=== PATIENT | male | born 1995 | race Caucasian/White ===

== ENCOUNTER 2019-09-05 11:52 | Emergency (ER) | payer OTHER, MEDICAID, SELFPAY ==
[2019-09-05 12:07] VITALS: BP 153/81; PULSE 82; RESP 16; TEMP 36.4; O2SAT 98
--- NOTE | 2019-09-05 12:17 | ED.NAVMDI ---
HPI - Nausea/Vomiting/Diarrhea General Chief complaint: Nausea/Vomiting/Diarrhea Stated complaint: diarrhea/vomiting/nausea Time Seen by Provider: 09/05/19 12:17 Source: patient and RN notes reviewed Mode of arrival: ambulatory Limitations: no limitations History of Present Illness HPI Narrative: 24-year-old male who presents to [facility] care with complaints of abdominal pain associated with nausea and vomiting and diarrhea since Tuesday. Patient states that he gets the abdominal pain which is sharp and crampy and he gets diarrhea and vomiting and then he doesn't seem to have any further episodes that day. Today is only day that he only had emesis. Patient denies any fevers, chill cough or sore throat. He states that he has taken Pepto Bismol and Tums for his symptoms. He also states that his girlfriend had food poisoning which only last for 1 day and they did eat at same place. Patient states that he would like COVID testing due to possible exposure at work. MD elicited complaint: vomiting and diarrhea Onset (ago): day(s) (3) Description of vomiting: food contents Description of diarrhea: watery Associated nausea: Yes Associated abdominal pain: Yes Location of pain: epigastric Related Data Home Medications Medication Instructions Recorded Confirmed albuterol sulfate [Ventolin HFA] 1 inh INHALATION QID PRN 09/05/19 09/05/19 budesonide-formoterol [Symbicort] 2 puff INHALATION Q12H 09/05/19 09/05/19 sertraline 100 mg PO DAILY 09/05/19 09/05/19 Allergies Allergy/AdvReac Type Severity Reaction Status Date / Time No Known Allergies Allergy Unknown Verified 09/05/19 12:13 Review of Systems Review of Systems: Narrative: CONSTITUTIONAL: Denies fever, chills, or sweats. EYES: Denies visual changes, redness, or discharge. ENT: Denies rhinorrhea, congestion, sore throat, or otalgia. CARDIOVASCULAR: Denies chest pain, palpitations, or edema. RESPIRATORY: Denies cough or dyspnea. GASTROINTESTINAL: states upper epigastric pain prior to emesis or diarrhea, some nausea, vomiting, or diarrhea. GENITOURINARY: Denies dysuria or hematuria. SKIN: Denies rash or itching. MUSCULOSKELETAL: Denies back pain, joint pain, or myalgia. NEUROLOGIC: Denies headache, numbness, or weakness. PSYCHIATRIC: Denies anxiety or depression. All systems reviewed & are unremarkable except as noted in HPI and below PMFSH Past Medical History Medical History (Updated 09/05/19 @ 13:03 by Erin Whitehead NP) Anxiety and depression Asthma Social History Social History (Updated 09/05/19 @ 13:02 by Erin Whitehead NP) Smoking status: Never smoker Living arrangements: with family Gender identity (if verbalized by the patient): Male Comments At time of signature, agree with nursing past medical, surgical, social history. There is no relevant family history pertinent to the presenting complaint Exam Narrative: Exam Narrative: GENERAL: Well-appearing, well-nourished,obese and in no acute distress. HEAD: Normocephalic, atraumatic. EYES: PERRLA and EOMI. ENT: Nares clear, no rhinorrhea or epistaxis. Mucous membranes moist. NECK: Supple.no lymphadenopthy CHEST: Clear to auscultation. No respiratory distress.SAO2 98% on room auir HEART: Regular rate and rhythm. No murmur heard. Normal peripheral pulses. ABDOMEN: Soft, nontender on palpation, upper epigastric pain prior to emesis or diarrhea, nondistended, normal active bowel sounds. EXTREMITIES: Normal range of motion. No edema. SKIN: Warm, dry, no rash. NEURO: No focal deficits. Alert and oriented x3. Course Vital Signs Vital signs: Vital Signs Temperature 36.4 C 09/05/19 12:07 Pulse Rate 82 09/05/19 12:07 Respiratory Rate 16 09/05/19 12:07 Blood Pressure 153/81 H 09/05/19 12:07 Pulse Oximetry 98 09/05/19 12:07 Temperature 36.4 C 09/05/19 12:07 Pulse Rate 82 09/05/19 12:07 Respiratory Rate 16 09/05/19 12:07 Blood Pressure 153/81 H 09/05/19 12:07 Pulse Oximetry 98
== END 2019-09-05 12:48 | disposition home or self-care (01) ==
PROVIDERS: Emergency Provider Registered Nurse
DX: K52.9 Noninfective gastroenteritis and colitis, unspecified (principal); R10.13 Epigastric pain; Z20.828 Contact with and (suspected) exposure to other viral communicable diseases; F41.9 Anxiety disorder, unspecified; F32.9 Major depressive disorder, single episode, unspecified; J45.909 Unspecified asthma, uncomplicated
CPT/HCPCS: 99203; G0463

== ENCOUNTER 2019-09-06 06:54 | Outpatient (NON) | payer OTHER, MEDICAID, SELFPAY ==
[2019-09-06 20:09] LABS: SARS-CoV-2 RNA PCR Negative
== END 2019-09-06 06:55 ==
PROVIDERS: Visit Provider Registered Nurse
DX: Z20.828 Contact with and (suspected) exposure to other viral communicable diseases (principal); K52.9 Noninfective gastroenteritis and colitis, unspecified
CPT/HCPCS: 87635; C9803; U0003

== ENCOUNTER 2019-09-27 14:22 | Emergency (ER) | payer OTHER, MEDICAID, SELFPAY ==
--- NOTE | 2019-09-27 14:31 | ED.ABDPAIN ---
HPI - Abdominal Pain General Chief Complaint: Abdominal Pain Stated Complaint: stomach pain/acid reflux/needs work note Time Seen by Provider: 09/27/19 14:33 Source: patient and RN notes reviewed Mode of arrival: ambulatory Limitations: no limitations History of Present Illness HPI narrative: 24 year old male who presents to [facility] care with continued complaints of intermittent episodes of abdominal pain around umbilicus area going into esophagus like heartburn which will proceed into nausea and vomiting and at times he will also have a stool. Patient was seen here on September 04 with similar symptoms and was given Dicyclomine which patient states did help some. He has appointment on 09/27/2019 with his medical doctor for further evaluation. Patient states that he has been taking TUMS and Pepto Bismol for his symptoms lately. He denies any blood noted in emesis or any bilious vomiting, no fevers, chills or sweats noted, denies any chest pain or any shortness of breath, denies illicit drug use, tobacco use or daily alcohol abuse. MD elicited complaint: abdominal pain (umbilicus) Pertinent past history: other (previous similar episode on September 02) Onset (ago): week(s) (continues intermittently since August) Pain Consistency: intermittent Location: epigastric (acid reflux) and periumbilical Severity: moderate Quality: cramping and burning Radiation: epigastric Migration to: epigastric Exacerbating factors: nothing Relieving factors: bowel movement, vomiting and other (Tums help some) Context: confirms history of similar episodes Associated symptoms: nausea, vomiting, diarrhea and other (formed stool) Treatments prior to arrival: antacids and other (dicyclomine) Related Data Home Medications Medication Instructions Recorded Confirmed albuterol sulfate [Ventolin HFA] 1 inh INHALATION QID PRN 09/05/19 09/27/19 sertraline 100 mg PO DAILY 09/05/19 09/27/19 albuterol sulfate [ProAir HFA] 1 inh INHALATION DAILY 09/27/19 09/27/19 Allergies Allergy/AdvReac Type Severity Reaction Status Date / Time No Known Allergies Allergy Unknown Verified 09/27/19 14:35 Review of Systems Review of Systems: Narrative: CONSTITUTIONAL: Denies fever, chills, or sweats. EYES: Denies visual changes, redness, or discharge. ENT: Denies rhinorrhea, congestion, sore throat, or otalgia. CARDIOVASCULAR: Denies chest pain, palpitations, or edema. RESPIRATORY: Denies cough or dyspnea. GASTROINTESTINAL: positive for mid abdominal pain, nausea, vomiting, occasional diarrhea. GENITOURINARY: Denies dysuria or hematuria. SKIN: Denies rash or itching. MUSCULOSKELETAL: Denies back pain, joint pain, or myalgia. NEUROLOGIC: Denies headache, numbness, or weakness. PSYCHIATRIC: positive history of anxiety or depression. All systems reviewed & are unremarkable except as noted in HPI and below PMFSH Past Medical History Medical History Anxiety and depression Asthma Social History Social History Smoking status: Never smoker Gender identity (if verbalized by the patient): Male Comments At time of signature, agree with nursing past medical, surgical, social history. There is no relevant family history pertinent to the presenting complaint Exam Narrative: Exam Narrative: GENERAL: Well-appearing, well-nourished,obese,and in no acute distress. HEAD: Normocephalic, atraumatic. EYES: PERRLA and EOMI. ENT: Nares clear, no rhinorrhea or epistaxis. Mucous membranes moist. NECK: Supple.no lymphadenopathy CHEST: Clear to auscultation. No respiratory distress.SAO2 99% on room air HEART: Regular rate and rhythm. No murmur heard. Normal peripheral pulses. ABDOMEN: Soft, nontender on palpation, nondistended, normal active bowel sounds. EXTREMITIES: Normal range of motion. No edema. SKIN: Warm, dry, no rash. NEURO: No focal deficits. Alert and oriented x3. Course Vital Sig
[2019-09-27 14:32] VITALS: BP 143/97; PULSE 86; RESP 20; TEMP 36.6; O2SAT 99
== END 2019-09-27 15:10 | disposition home or self-care (01) ==
PROVIDERS: Emergency Provider Registered Nurse
DX: R10.33 Periumbilical pain (principal); R11.2 Nausea with vomiting, unspecified; F41.9 Anxiety disorder, unspecified; F32.9 Major depressive disorder, single episode, unspecified; J45.909 Unspecified asthma, uncomplicated
CPT/HCPCS: 99213; G0463

== ENCOUNTER 2024-06-13 13:44 | Emergency (ER) | payer OTHER, SELFPAY ==
[2024-06-13 13:57] VITALS: BP 148/94; PULSE 112; RESP 20; TEMP 36.3; O2SAT 99
--- OUTSIDE RECORDS SUMMARY | 2024-06-13 14:34 | XMS_ITS | Clinical Summary ---
Author Organization [facility] Address [address] [place] [address] Care Team Providers Care Development Team Lead Name Role Phone Radha Blanco MD Primary Care Provider [phone] Allergies Active Allergy Reactions Criticality Noted Date Comments Seasonal Eyes Water & Itch,Runny Nose 024 Medications buPROPion (WELLBUTRIN) 75 MG tabletIndicatio ns:Mild episode of recurrent major depressive disorder Take 1 tablet (75 mg total) by mouth 2 (two) times daily. 180 tablet 11/01/2023 Active sertraline (ZOLOFT) 100 MG tabletIndicatio ns:Mild episode of recurrent major depressive disorder,ANDRES (generalized anxiety disorder) Take 2 tablets (200 mg total) by mouth daily. 180 tablet 11/01/2023 Active atorvastatin (LIPITOR) 10 MG tabletIndicatio ns:Hyperlipidem ia associated with type 2 diabetes mellitus (CMS/HCC HHS/HCC) Take 1 tablet (10 mg total) by mouth nightly at bedtime. 90 tablet 1 11/01/2023 Active metFORMIN ER (GLUCOPHAGE-XR) 500 MG 24 hr tabletIndicatio ns:Prediabetes Take 2 tablets (1,000 mg total) by mouth daily with breakfast. 180 tablet 11/01/2023 Active lisinopril-hydr oCHLOROthiazide (ZESTORETIC) 20-12.5 MG tabletIndicatio ns:Hypertension associated with type 2 diabetes mellitus (CMS/HCC HHS/HCC) Take 1 tablet by mouth daily. 90 tablet 1 11/01/2023 Active tirzepatide (MOUNJARO) 2.5 MG/0.5ML injectionIndica tions:Diabetes Mellitus Inject 2.5 mg into the skin every 7 days. Indications: Diabetes 2 mL 1 11/02/2023 Active vitamin D2, ergocalciferol, (DRISDOL) 1.25 mg capsuleIndicati ons:Vitamin D deficiency Take 1 capsule (50,000 Units total) by mouth every 7 days. 12 capsule 3 11/02/2023 Active Active Problems Problem Noted Date Diagnosed Date Elevated liver enzymes 11/02/2023 Vitamin D deficiency 11/02/2023 Hypertension Asthma ([facility]) Anxiety Depression Diabetes mellitus ([facility]) Immunizations Immunization Administration Dates Next Due Dtap (Acel-Immune) 09/20/2000, 7,1995,1995,1995 Hepatitis B Pediatric 1995,1995,01/14 Hib (PedvaxHIB)3 Dose 05/17/1996,1995,05/16,1995 Influenza (Generic) 11/25/2011 Influenza Adult (Generic) 03/01/2023,12/12/2017 MMR (MMRII) 09/20/2000,02/16/1996 Polio IPV (Ipol) 09/20/2000,1995, 6,1995 Tdap (Generic) 09/04/2009 Varicella (Varivax) 09/23/2006,05/17/1996 Family History Medical History Relation Comments Diabetes Brother Diabetes Father Depression Mother Hypertension Neg Hx Relation Status Comments Brother Father Mother Social History Tobacco Use Types Packs/Day Years Used Date Smoking Tobacco: Never Smokeless Tobacco: Never Tobacco Cessation:Counseling Given: Yes Comments:Vape everyday; counseled by Dr. Blanco Alcohol Use Standard Drinks/Week Comments Not Currently 0 (1 standard drink = 0.6 oz pur e alcohol) AUDIT-C Answer Date Recorded Q1: How often do you have a drink containing alc ohol? Monthly or less 11/01/2023 Q2: How many drinks containi ng alcohol do you have on a typical day when you are drinking? 3 or 4 11/01/2023 Q3: How often do you have si x or more drinks on one occasion? Never 11/01/2023 PHQ-2 Answer Date Recorded Patient Health Questionnaire-2 Score 4 11/01/2023 Sex and Gender Information Value Date Recorded Sex Assigned at Not on file Legal Sex Male 3:32 PM CDT Gender Identity Not on file Sexual Orientation Not on file Last Filed Vital Signs Vital Sign Reading Time Taken Comments Blood Pressure 129/89 11/01/2023 2:32 PM CDT Pulse 87 11/01/2023 1:49 PM CDT Temperature 36.7 C (98 F) 11/01/2023 1:49 PM CDT Respiratory Rate 18 11/01/2023 1:49 PM CDT Oxygen Saturation 95% 11/01/2023 1:49 PM CDT Inhaled Oxygen Concentration - - Weight 152 kg (335 lb 3.2 oz) 11/01/2023 1:49 PM CDT Height 180.3 cm (5' 11 ) 11/01/2023 1:49 PM CDT Body Mass Index 46.75 11/01/2023 1:49 PM CDT Plan of Treatment Health Maintenance Due Date Last Done Comments Kidney Health Evaluation 1995 Diabetes: Retinopathy Eye Exam 2013 Pneumococcal Vaccine: Pediatrics (0 to 5 Years) and At-Risk Patients (6 to 49 Years) (1 of 2 - PCV) 2014 DTaP, Tdap and Td Vaccines (7 - Td or Tdap) 09/05/2019 09/04/2009, 09/20/2000, 05/17/1996, Additional history exists COVID-19 Vaccine ( season) 2023 03/01/2023, 02/10/2021, 04/22/2020, Additional history exists PHQ-2 (Physician Viola) 02/15/2024 11/01/2023 Hemoglobin A1C 04/30/2024 11/01/2023 Annual Physical 10/31/2024 11/01/2023 Lipid Panel 10/31/2024 11/01/2023 Hepatitis B Vaccines Completed 1995, 1995, 1995 Hepatitis C Completed 11/01/2023 HPV Vaccines Aged Out No longer eligi ble based on patient's age to complete this topic Meningococcal B Vaccine Aged Out No l onger eligible based on patient's age to complete this topic Meningococcal Vaccine Aged Out No karla ana m eligible based on patient's age to complete this topic RSV Immunizations Under 20 Months Aged Out No longer eligible based on patient's age to complete this topic Procedures Procedure Name Priority Date/Time Associated Diagnosis Comments HEPATITIS C ANTIBODY Routine 11/01/2023 2:41 PM CDT Annual physical exam Establishing care with new doctor, encounter for General medical exam LIPID PANEL Routine 11/01/2023 2:41 PM CDT Annual physical exam Establishing care with new doctor, encounter for General medical exam HEMOGLOBIN, GLYCOSYLATED Routine 11/01/2023 2:41 PM CDT Annual physical exam Establishing care with new doctor, encounter for General medical exam from Last 3 Months or Most Recently Relevant to Health Maintenance Results * (ABNORMAL) HEMOGLOBIN, GLYCOSYLATED (11/01/2023 2:41 PM CDT) HGB A1C 5.9 4.5 - 6.2 % 11/02/2023 12:33 PM CDT [facility] ESTIMATED AVG GLUCOSE 123(H) 74 - 106 MG/DL 11/02/2023 12:[address] [facility] 11/01/2023 2:41 PM CDT Radha Blanco MD LABORATORY Final Result [facility] [address] [place] [address], * (ABNORMAL) LIPID PANEL (11/01/2023 2:41 PM CDT) CHOLESTEROL 227(H) <200 MG/DL 11/02/2023 12:27 PM CDT [facility] TRIGLYCERIDES 219(H) <150 MG/DL 11/02/2023 12:27 PM CDT [facility] HDL 46 >40 MG/DL 11/02/2023 12:27 PM CDT [facility] LDL-C 137(H) <100 MG/DL 11/02/2023 12:27 PM CDT [facility] VLDL CALCULATION 44(H) 5 - 28 MG/DL 11/02/2023 12:27 PM CDT [facility] CHOL/HDL RATIO 4.9(H) 0.0 - 4.0 11/02/2023 12:27 PM CDT [facility] LDL/HDL 3.0(H) 0.41 - 2.13 11/02/2023 12:27 PM CDT [facility] NON HDL CHOLESTEROL 181(H) <140 MG/DL 11/02/2023 12:27 PM CDT [facility] 11/01/2023 2:41 PM CDT us Radha Blanco MD LABORATORY Final Result [facility] [address] [place] [address], [place] [phone] * HEPATITIS C ANTIBODY (11/01/2023 2:41 PM CDT) HEPATITIS C AB NON-REACTI VE NON-REACT LULY 11/01/2023 9:52 PM CDT [facility] Comment: ANTIBODIES TO HCV NOT DETECTED. DOES NOT EXCLUDE THE POSSIBILITY OF EXPOSURE TO HCV. 11/01/2023 2:41 PM CDT us Radha Blanco MD LABORATORY Final Result [facility] [address] [place] [address], [place] [phone] [id number] from Last 3 Months or Most Recently Relevant to Health Maintenance Insurance [facility] Care Teams Development Team Lead Relationship Specialty Start Date End Date Radha Blanco MD [address] [facility] [address] [place] [address] PCP - General INTERNAL MEDICINE 11/01/23
--- OUTSIDE RECORDS SUMMARY | 2024-06-13 14:34 | XMS_ITS | Clinical Summary ---
Author Organization [address] [address] Care Team Providers Care Top And Trim Worker Name Role Phone Unknown, Notinfile Primary Care Provider Unavail able Allergies No known active allergies Medications Hospital, Clinic, or Other Facility Administered Medication Ordered Dose Route Frequency Start Date End Date Status cloNIDine (CATAPRES) tablet 0.1 mgIndications:Elevated blood pressure reading in office without diagnosis of hypertension 0.1 mg oral Once 06/13/2024 06/14/2024 Active Active Problems Problem Noted Date Diagnosed Date Hay fever 05/26/2011 Bronchial asthma 05/26/2011 Encounters Date Type Department Care Team Description 06/13/2024 12:15 PM CDT Office Visit [facility] at [address] [address] Griffin Martel NP Elevated blood pressure reading in office without diagnosis of hypertension (Primary Dx); Abdominal pain; Nausea and vomiting, unspecified vomiting type from Last 3 Months Social History Tobacco Use Types Packs/Day Years Used Date Smoking Tobacco: Never Sex and Gender Information Value Date Recorded Sex Assigned at Not on file 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 Gender Identity Not on file Sexual Orientation Not on file Obstetrics History Last Filed Vital Signs Vital Sign Reading Time Taken Comments Blood Pressure 170/110 06/13/2024 12:46 PM CDT Pulse 96 06/13/2024 12:12 PM CDT Temperature 37 C (98.6 F) 06/13/2024 12:12 PM CDT Respiratory Rate 18 06/13/2024 12:1 2 PM CDT Oxygen Saturation 96% 06/13/2024 12: 12 PM CDT Inhaled Oxygen Concentration - - Weight 159.3 kg (351 lb 1.6 oz) 025 12:12 PM CDT Height 172 cm (5' 7.72 ) 06/13/2024 12: 12 PM CDT Body Mass Index 53.83 06/13/2024 12:12 PM CDT Plan of Treatment Health Maintenance Due Date Last Done Comments Depression Screening 1995 Hepatitis C Screening 1995 Regular Well Visit/Exam 18-64 2013 DTaP/Tdap/Td Vaccine (7 - Td or Tdap) 09/05/2019 09/04/2009, 09/20/2000, 05/17/1996, Additional history exists Covid-19 Vaccine ( season) 2023 03/01/2023, 02/10/2021, 04/22/2020, Additional history exists Influenza Vaccine (Season Ended) 2024 03/01/2023, 12/12/2017, 11/25/2011 Hepatitis B Screening Completed 1995 , 1995, 1995 Varicella Vaccines Completed 09/23/2006, 05/17/1996 HPV Vaccines Aged Out No longer eligi ble based on patient's age to complete this topic Pneumococcal vaccine <65 Aged Out No longer eligible based on patient's age to complete this topic Insurance Care Teams Top And Trim Worker Relationship Specialty Start Date End Date Unknown, Notinfile PCP - General 06/13/24
--- OUTSIDE RECORDS SUMMARY | 2024-06-13 14:34 | XMS_ITS | Referral Summary ---
Author Organization [address] Address [address] [place] [id number] Care Team Providers Care Senior Telecommunications Specialist Name Role Phone Unknown, Notinfile Primary Care Provider Unavail able Encounters Date Type Department Care Team Description 06/13/2024 12:15 PM CDT Office Visit [facility] at [address] [address] Griffin Martel NP Elevated blood pressure reading in office without diagnosis of hypertension (Primary Dx); Abdominal pain; Nausea and vomiting, unspecified vomiting type from Last 3 Months Allergies No known active allergies Medications Hospital, Clinic, or Other Facility Administered Medication Ordered Dose Route Frequency Start Date End Date Status cloNIDine (CATAPRES) tablet 0.1 mgIndications:Elevated blood pressure reading in office without diagnosis of hypertension 0.1 mg oral Once 06/13/2024 06/14/2024 Active Active Problems Problem Noted Date Diagnosed Date Hay fever 05/26/2011 Bronchial asthma 05/26/2011 Social History Tobacco Use Types Packs/Day Years Used Date Smoking Tobacco: Never Sex and Gender Information Value Date Recorded Sex Assigned at Not on file 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 [address] [place] [address] Care Teams Senior Telecommunications Specialist Relationship Specialty Start Date End Date Unknown, Notinfile PCP - General 06/13/24
--- OUTSIDE RECORDS SUMMARY | 2024-06-13 14:34 | XMS_ITS | Encounter Summary ---
Author Organization [facility] Address [address] [place] [address] Care Team Providers Care Portable Sawyer Name Role Phone Unknown, Notinfile Primary Care Provider Unavail able Reason for Referral * Consultation (Urgent) - Pending Review Specialty Diagnoses / Procedures Referred By Briseida hutchison Referred To Contact Family Medicine Diagnoses Elevated blood pressure reading in office without diagnosis of hypertension Abdominal pain Nausea and vomiting, unspecified vomiting type Griffin Martel NP [address] [place] [id number] Phone: tel: fax: [facility] Referral ID Status Reason Start Date Expiration Date Visits Requested Visits Authorized [id number] Pending Review Specialty Services Required 06/13/2024 07/13/2025 1 1 Question Answer Please select the performing region: [facility] [[id number]] # of visits: 1 Reason for Visit * Reason Comments Abdominal Pain Yesterday morning, s harp pain, feels like he is gonna pass out and throw up, He is vomiting, able to eat bread and water, And cramping in his sides, Back Pain Mid to lower back, x 1 week, Encounter Details Date Type Department Care Team (Late st Contact Info) Description 06/13/2024 12:15 PM CDT Office Visit [facility] Care at [address] [address] Griffin Martel NP [address] [place] [address] Elevated blood pressure reading in office without diagnosis of hypertension (Primary Dx); Abdominal pain; Nausea and vomiting, unspecified vomiting type Social History Tobacco Use Types Packs/Day Years Used Date Smoking Tobacco: Never Sex and Gender Information Value Date Recorded Sex Assigned at Not on file 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 Gender Identity Not on file Sexual Orientation Not on file documented as of this encounter Last Filed Vital Signs Vital Sign Reading [...] Mass Index 53.83 06/13/2024 12:12 PM CDT documented in this encounter Plan of Treatment Scheduled Referrals Name Type Priority Associated Diagnoses Orde r Schedule Ambulatory referral to Family Practice Outpatient Referral Urgent Elevated blood pressure reading in office without diagnosis of hypertension Abdominal pain Nausea And Vomiting, Unspecified Vomiting Type Expected: 06/14/2024 (Approximate), Expires: 06/13/2025 documented as of this encounter Visit Diagnoses Diagnosis Elevated blood pressure reading in office without diagnosis of hypertension- Primary Abdominal pain Abdominal pain, unspecified site Nausea and vomiting, unspecified vomiting type documented in this encounter Orders Medications Ordered That Vipul ht Not Have Been Administered Count Last Ordered Date First Ordered Date cloNIDine (CATAPRES) tablet 0.1 mg 1 2024 documented in this encounter Care Teams Portable Sawyer Relationship Specialty Start Date End Date Unknown, Notinfile PCP - General 06/13/24 documented as of this encounter
[2024-06-13 16:16] VITALS: BP 128/77; PULSE 109; RESP 20; O2SAT 96
--- NOTE | 2024-06-13 16:57 | ED.GENADULT ---
HPI - General Adult General Chief complaint: Recheck/Abnormal Lab/Rx Stated complaint: HTN Time Seen by Provider: 06/13/24 16:49 History of Present Illness HPI narrative: Patient 29-year-old gentleman who presents emergency department chief complaint of hypertension. Patient reports that he has history of hypertension currently not on any medicines for high blood pressure. Patient states that he went to urgent care and his blood pressure was elevated in a told the patient to come to the emergency department patient reports he has no symptoms reports he has no headache no focal neurological deficits denies chest pain or shortness of breath. Patient states that he would like to follow-up with his primary care provider and start new therapy with them. Related Data Home Medications ?Medication ?Instructions ?Recorded ?Confirmed ?Last Taken ?Type albuterol sulfate 90 mcg/actuation 1 inh inhalation QID PRN Wheezing 09/05/19 09/27/19 Unknown History aerosol inhaler (Ventolin HFA) sertraline 100 mg tablet 100 mg PO DAILY 09/05/19 09/27/19 Unknown History albuterol sulfate 90 mcg/actuation 1 inh inhalation DAILY 09/27/19 09/27/19 Unknown History aerosol inhaler (ProAir HFA) Allergies Allergy/AdvReac Type Severity Reaction Status Date / Time No Known Allergies Allergy Unknown Verified 09/27/19 14:35 Review of Systems Review of Systems: A 10 system review of systems was completed on the patient and is negative except for what is stated in the HPI. Nursing and ancillary documentation was reviewed. [facility] Past Medical History Medical History Anxiety and depression Asthma Social History Social History Smoking status: Never smoker Living arrangements: with family Gender identity (if verbalized by the patient): Male Exam Narrative: GENERAL: Well-appearing, well-nourished, and in no acute distress. HEAD: Normocephalic, atraumatic. EYES: PERRLA and EOMI. ENT: Nares clear, no rhinorrhea or epistaxis. Mucous membranes moist. NECK: Supple. CHEST: Clear to auscultation. No respiratory distress. HEART: Regular rate and rhythm. No murmur heard. Normal peripheral pulses. ABDOMEN: Soft, nontender, nondistended, normal active bowel sounds. EXTREMITIES: Normal range of motion. No edema. SKIN: Warm, dry, no rash. NEURO: No focal deficits. Alert and oriented x3. PSYCH: Normal mood and affect. Course Vital Signs Vital signs: Vital Signs Temperature 36.3 C L 06/13/24 13:57 Pulse Rate 112 H 06/13/24 13:57 Respiratory Rate 20 06/13/24 13:57 Blood Pressure 148/94 H 06/13/24 13:57 Pulse Oximetry 99 06/13/24 13:57 Temperature 36.3 C L 06/13/24 13:57 Pulse Rate 109 H 06/13/24 16:16 Respiratory Rate 20 06/13/24 16:16 Blood Pressure 128/77 06/13/24 16:16 Pulse Oximetry 96 06/13/24 16:16 Medical Decision Making MDM Narrative Medical decision making narrative: Differential diagnosis includes hypertensive The patient is awake alert and asymptomatic. The patient would like to follow-up with his primary care provider this time there is no signs of hypertensive crisis. Patient instructed to return precautions and should return if symptoms worsen. Vital Signs Vital Signs: Vital Signs Temperature 36.3 C L 06/13/24 13:57 Pulse Rate 112 H 06/13/24 13:57 Respiratory Rate 20 06/13/24 13:57 Blood Pressure 148/94 H 06/13/24 13:57 Pulse Oximetry 99 06/13/24 13:57 Temperature 36.3 C L 06/13/24 13:57 Pulse Rate 109 H 06/13/24 16:16 Respiratory Rate 20 06/13/24 16:16 Blood Pressure 128/77 06/13/24 16:16 Pulse Oximetry 96 06/13/24 16:16 Discharge Plan Discharge Clinical Impression: Hypertension Patient Disposition: Home Condition: Stable Instructions: Antibiotic Form, Hypertension (ED) Additional Instructions: Please follow-up with your primary care provider for your scheduled appointment tomorrow. Please keep a daily log of her blood pressure if he develops headache chest pain shortness of breath or weakness in your arms or legs please return to the emergency department for re-evaluation Patient Language: Nepali Prescriptions: No Action albuterol sulfate [ProAir HFA] 90 mcg/actuation Hfa Aerosol Inhaler 1 inh INHALATION DAILY ondansetron HCl [Zofran] 4 mg tablet 4 mg PO Q6H Qty: 20 0RF sertraline 100 mg Tablet 100 mg PO DAILY albuterol sulfate [Ventolin HFA] 90 mcg/actuation Hfa Aerosol Inhaler 1 inh INHALATION QID PRN (Reason: Wheezing) Follow-up/Referrals: PHYSICIAN NOT ON STAFF,NONSTAFF [Primary Care Provider] - Time of Disposition: 16:58
--- OUTSIDE RECORDS SUMMARY | 2024-06-13 17:06 | XMS_ITS | Referral Summary ---
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
--- OUTSIDE RECORDS SUMMARY | 2024-06-13 17:06 | XMS_ITS | Clinical Summary ---
Author Organization [facility] Address [address] [place] [address] Care Team Providers Care Environmental Studies Program Director Name Role Phone Radha Blanco MD Primary Care Provider [phone] Allergies Active Allergy Reactions Criticality Noted Date [...] 11/02/2023 Vitamin D deficiency 11/02/2023 Hypertension Asthma ([facility]) Anxiety Depression Diabetes mellitus ([facility]) Immunizations Immunization Administration Dates Next Due Dtap [...] 02/10/2021, 04/22/2020, Additional history exists PHQ-2 (Physician [place]) 02/15/2024 11/01/2023 Hemoglobin A1C 04/30/2024 11/01/2023 Annual [...] - 6.2 % 11/02/2023 12:33 PM CDT [facility] ESTIMATED AVG GLUCOSE 123(H) 74 - 106 MG/DL 11/02/2023 12:33 PM CDT [facility] 11/01/2023 2:41 PM CDT Radha Blanco MD LABORATORY Final Result [facility] [address] [place] [address], * (ABNORMAL) LIPID PANEL (11/01/2023 2:41 PM CDT) CHOLESTEROL 227(H) <200 MG/DL 11/02/2023 12:27 PM CDT [facility] TRIGLYCERIDES 219(H) <150 MG/DL 11/02/2023 12:27 PM CDT [facility] HDL 46 >40 MG/DL 11/02/2023 12:27 PM CDT [facility] LDL-C 137(H) <100 MG/DL 11/02/2023 12:27 PM CDT [facility] VLDL CALCULATION 44(H) 5 - 28 MG/DL 11/02/2023 12:27 PM CDT [facility] CHOL/HDL RATIO 4.9(H) 0.0 - 4.0 11/02/2023 12:27 PM CDT [facility] LDL/HDL 3.0(H) 0.41 - 2.13 11/02/2023 12:27 PM CDT [facility] NON HDL CHOLESTEROL 181(H) <140 MG/DL 11/02/2023 12:27 PM CDT [facility] 11/01/2023 2:41 PM CDT us Radha Blanco MD LABORATORY Final Result [facility] [address] [place] [address], [place] [phone] * HEPATITIS C ANTIBODY (11/01/2023 2:41 PM CDT) HEPATITIS C AB NON-REACTI VE NON-REACT LULY 11/01/2023 9:52 PM CDT [facility] Comment: ANTIBODIES TO HCV NOT DETECTED. DOES NOT EXCLUDE THE POSSIBILITY OF EXPOSURE TO HCV. 11/01/2023 2:41 PM CDT us Radha Blanco MD LABORATORY Final Result [facility] [address] [place] [address], [place] [phone] [id number] from Last 3 Months or Most Recently Relevant to Health Maintenance Insurance [facility] Care Teams Environmental Studies Program Director Relationship Specialty Start Date End Date Radha Blanco MD [address] [place] [address] PCP - General INTERNAL MEDICINE 11/01/23
--- OUTSIDE RECORDS SUMMARY | 2024-06-13 17:06 | XMS_ITS | Encounter Summary ---
Author Organization [facility] Address [address] [place] [address] Care Team Providers Care Vacuum Bottle Assembler Name Role Phone Unknown, Notinfile Primary Care Provider Unavail able Reason for Referral * Consultation (Urgent) - Pending Review Specialty Diagnoses / Procedures Referred By Briseida hutchison Referred To Contact Family Medicine Diagnoses Elevated blood pressure reading in office without diagnosis of hypertension Abdominal pain Nausea and vomiting, unspecified vomiting type Griffin Martel NP [address] [place] [phone] Phone: tel: fax: [facility] Referral ID Status Reason Start Date Expiration Date Visits Requested Visits Authorized [id number] Pending Review Specialty Services Required 06/13/2024 07/13/2025 1 1 Question Answer Please select the performing region: [facility] [[id number]] # of visits: 1 [...] Description 06/13/2024 12:15 PM CDT Office Visit [facility] Convenient Care at [address] [address] Griffin Martel NP [address] [place] [address] Elevated blood pressure reading in office without diagnosis of hypertension (Primary Dx); Abdominal pain; Nausea and vomiting, unspecified vomiting type Social History Tobacco Use Types Packs/Day Years Used Date Smoking Tobacco: Never Sex and Gender Information Value Date Recorded Sex Assigned at Not on file 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
--- OUTSIDE RECORDS SUMMARY | 2024-06-13 17:06 | XMS_ITS | Data Portability ---
Author Organization [facility] [employer], Main Office Address [address] [place] [address] Assessment No assessment recorded. Plan of Treatment Reminders Order Date Submit Date Provider Last Modified By Organization Details Last Modified Time Details Appointments None recorded. Lab hemoglobin A1C, fingerstick 2023 024 [email or web address], [place], [address], 4 10:27:42 hemoglobin A1C, fingerstick [address], [place], [address], 3 11:11:00 CMP, serum or plasma 2022 023 [facility] (Lab), [address] [place], [address], 3 13:17:02 lipid panel, blood 2022 023 [facility] (Lab), [address] [place], [address], 3 14:33:25 hemoglobin A1C, fingerstick [address], [place], [address], 3 10:30:13 Referral None recorded. Procedures None recorded. Surgeries None recorded. Imaging None recorded. Medication Orders metformin ER 500 mg tablet,exte nded release 24 hr 2023 024 [facility] [address], [address], [place], [address], 4 10:23:59 neomycin-po lymyxin-dex ameth 3.5 mg/mL-10,00 0 unit/mL-0.1 % eye drops 2022 023 [facility] [address], [address], [place], [address], 3 10:33:51 Ozempic 0.25 mg or 0.5 mg (2 mg/3 mL) subcutaneou s pen injector [email or web address], [address] [facility], [place], [address], 4 10:24:36 atorvastati n 10 mg tablet 2022 023 [facility] 2425, [address] [facility], [place], [address], 3 10:01:19 Patient TargetsNo targets recorded. Patient InstructionsNo instructions recorded. Reason for Referral None Reported. Results Created Date Observation Date Name Description Value Unit Range Abnormal Flag Note LastModifiedBy Organization Detail LastModifiedTime 09/29/19 22 09/28/2021 HEMOG LOBIN A1C HA1C 6.1 % 4.0-6. 0 high Diabe colton Scree rogers Crite bertha: <5.7% Consi stent with absen ce of diabe colton 5.7-6 .4% Consi stent with incre ased risk for diabe colton (pred iabet es) >OR=6 .5% Consi stent with diabe colton REFER ENCE: Diabe colton Care 2016, 39(Gaviria ppl.1 ):s13 -s[address] [facility] ([facility]) [address] [place], [address], 09/28/2021 14:48:47 09/29/19 22 09/28/2021 VITAM IN B12 (ACRRIE DENISSE ) vb12 586 pg/mL 239-[address] [facility] (Lab) [address] [place], [address], 09/28/2021 14:28:56 09/29/19 22 09/28/2021 TSH thyroid-stim ulating hormone 2.310 uIU/m L 0.465- 4.[address] [facility] (Lab) [address] [place], [address], 09/28/2021 14:07:54 09/29/19 22 09/28/2021 CBC/C OMPLE TE BLD COUNT W/DIF F white blood cells 9.4 x10'3 /uL 4.2-10 .8 Not Available [facility] (Lab) [address] [place], [address], 09/28/2021 13:27:33 09/29/19 22 09/28/2021 CBC/C OMPLE TE BLD COUNT W/DIF F red blood cells 4.97 x10'6 /uL 4.10-5 .[address] [facility] (Lab) [address] [place], [address], 09/28/2021 13:27:33 09/29/19 22 09/28/2021 CBC/C OMPLE TE BLD COUNT W/DIF F hemoglobin 14.5 g/dL 13.2-1 7.[address] [facility] (Lab) [address] [place], [address], 09/28/2021 13:27:33 09/29/19 22 09/28/2021 CBC/C OMPLE TE BLD COUNT W/DIF F hematocrit 42.9 % 39.3-5 0.[address] [facility] (Lab) [address] [place], [address], 09/28/2021 13:27:33 09/29/19 22 09/28/2021 CBC/C OMPLE TE BLD COUNT W/DIF F mean red cell volume 86.3 fL 80.0-9 7.[address] [facility] (Lab) [address] [place], [address], 09/28/2021 13:27:33 09/29/19 22 09/28/2021 CBC/C OMPLE TE BLD COUNT W/DIF F mean red cell hemoglobin 29.2 pg 27.0-3 3.[address] [facility] (Lab) [address] [place], [address], 09/28/2021 13:27:33 09/29/19 22 09/28/2021 CBC/C OMPLE TE BLD COUNT W/DIF F mean RBC HGB concentratio n 33.8 g/dL 31.0-3 6.[address] [facility] (Lab) [address] [place], [address], 09/28/2021 13:27:33 09/29/19 22 09/28/2021 CBC/C OMPLE TE BLD COUNT W/DIF F red cell distribution width 12.6 % 11.8-1 5.[address] [facility] (Lab) [address] [place], [address], 09/28/2021 13:27:33 09/29/19 22 09/28/2021 CBC/C OMPLE TE BLD COUNT W/DIF F platelets 237 x10'3 /uL 150-40 [address] [facility] (Lab) [address] [place], [address], 09/28/2021 13:27:33 09/29/19 22 09/28/2021 CBC/C OMPLE TE BLD COUNT W/DIF F mean platelet volume 11.2 fL 9.0-12 .[address] [facility] (Lab) [address] [facility] [place], [address], 09/28/2021 13:27:33 09/29/19 22 09/28/2021 CBC/C OMPLE TE BLD COUNT W/DIF F neutrophils 57.9 % 39.0-7 2.[address] [facility] (Lab) [address] [place], [address], 09/28/2021 13:27:33 09/29/19 22 09/28/2021 CBC/C OMPLE TE BLD COUNT W/DIF F lymphocytes 32.9 % 16.0-4 7.[address] [facility] (Lab) [address] [place], [address], 09/28/2021 13:27:33 09/29/19 22 09/28/2021 CBC/C OMPLE TE BLD COUNT W/DIF F monocytes 7.1 % 5.0-12 .0 Not Available [facility] (Lab) [address] [place], [address], 09/28/2021 13:27:33 09/29/19 22 09/28/2021 CBC/C OMPLE TE BLD COUNT W/DIF F eosinophils 1.4 % 1.0-7. [address] [facility] (Lab) [address] [place], [address], 09/28/2021 13:27:33 09/29/19 22 09/28/2021 CBC/C OMPLE TE BLD COUNT W/DIF F basophils 0.4 % 0.0-2. [address] [facility] (Lab) [address] [place], [address], 09/28/2021 13:27:33 09/29/19 22 09/28/2021 CBC/C OMPLE TE BLD COUNT W/DIF F immature granulocytes 0.3 % 0.00-0 .[address] [facility] (Lab) [address] [place], [address], 09/28/2021 13:27:33 09/29/19 22 09/28/2021 CBC/C OMPLE TE BLD COUNT W/DIF F neutrophils, absolute count 5.44 x10'3 /uL 1.5-8. [address] [facility] (Lab) [address] [place], [address], 09/28/2021 13:27:33 09/29/19 22 09/28/2021 CBC/C OMPLE TE BLD COUNT W/DIF F lymphocytes, absolute count 3.09 x10'3 /uL 1.07-3 .[address] [facility] (Lab) [address] [place], [address], 09/28/2021 13:27:33 09/29/19 22 09/28/2021 CBC/C OMPLE TE BLD COUNT W/DIF F monocytes, absolute count 0.67 x10'3 /uL 0.29-0 .[address] [facility] (Lab) [address] [place], [address], 09/28/2021 13:27:33 09/29/19 22 09/28/2021 CBC/C OMPLE TE BLD COUNT W/DIF F eosinophils, absolute count 0.13 x10'3 /uL 0.02-0 .[address] [facility] (Lab) [address] [place], [address], 09/28/2021 13:27:33 09/29/19 22 09/28/2021 CBC/C OMPLE TE BLD COUNT W/DIF F basophils, absolute count 0.04 x10'3 /uL 0.01-0 .[address] [facility] (Lab) [address] [place], [address], 09/28/2021 13:27:33 09/29/19 22 09/28/2021 CBC/C OMPLE TE BLD COUNT W/DIF F immature granulocytes ,absolute 0.03 x10'3 /uL 0.00-0 .[address] [facility] (Lab) [address] [place], [address], 09/28/2021 13:27:33 09/29/19 22 09/28/2021 CBC/C OMPLE TE BLD COUNT W/DIF F nucleated red blood cells 0.0 % -0 Not Available [facility] (Lab) [address] [place], [address], 09/28/2021 13:27:33 09/29/19 22 09/28/2021 CBC/C OMPLE TE BLD COUNT W/DIF F NRBC# 0.00 x10'3 /uL Not Available [facility] (Lab) [address] [place], [address], 09/28/2021 13:27:33 04/07/19 23 04/07/2022 COMPR EHENS LULY METAB OLIC PANEL sodium 141 mmol/ L 137-14 [address] [facility] (Lab) [address] [place], [address], 04/07/2022 14:19:00 04/07/19 23 04/07/2022 COMPR EHENS LULY METAB OLIC PANEL potassium 4.1 mmol/ L 3.5-5. [address] [facility] (Lab) [address] [place], [address], 04/07/2022 14:19:00 04/07/19 23 04/07/2022 COMPR EHENS LULY METAB OLIC PANEL chloride 105 mmol/ L 98-[address] [facility] (Lab) [address] [place], [address], 04/07/2022 14:19:00 04/07/19 23 04/07/2022 COMPR EHENS LULY METAB OLIC PANEL carbon dioxide 25 mmol/ L 22-[address] [facility] (Lab) [address] [place], [address], 04/07/2022 14:19:00 04/07/19 23 04/07/2022 COMPR EHENS LULY METAB OLIC PANEL anion gap 15.1 mmol/ L 14-[address] [facility] (Lab) [address] [place], [address], 04/07/2022 14:19:00 04/07/19 23 04/07/2022 COMPR EHENS LULY METAB OLIC PANEL glucose 110 mg/dL 70-99 high Not Available [facility] (Lab) [address] [place], [address], 04/07/2022 14:19:00 04/07/19 23 04/07/2022 COMPR EHENS LULY METAB OLIC PANEL BUN 14 mg/dL 8-[address] [facility] (Lab) [address] [place], [address], 04/07/2022 14:19:00 04/07/19 23 04/07/2022 COMPR EHENS LULY METAB OLIC PANEL creatinine 0.80 mg/dL 0.66-1 .[address] [facility] (Lab) [address] [place], [address], 04/07/2022 14:19:00 04/07/19 23 04/07/2022 COMPR EHENS LULY METAB OLIC PANEL GFR >60 Refer ence Range : Pepin ge GFR Healt hy Adult : >60 mL/mi n/1.7 3 m2 Chron ic Kidne y Disea se: 15-60 mL/mi n/1.7 3 m2 Kidne y Failu re: <15/m L/min /1.73 m2 www.n iddk. nih.g ov The MDRD study equat ion has not been valid ated in child juliet <18 years of age; pregn ant women ; the elder ly >85 years of age; or in some racia l or ethni c subgr oups, such as Hispa nics. Outsi de the valid ated blu eters , estim ated GFR is less accur ate, requi ring clini amparo judgm ent on a case- by-ca se basis . Clini amparo inter preta tion for other races and ages must be made by the clini donato. The MDRD study equat ion has not been valid ated for the evalu ation of serum creat inine relat ed to nutri ira l statu s or medic ation usage . For perso ns <18 years of age, a pedia tric GFR calcu lator is avail able on the [facility] websi te: https ://alysa w.chante espinoza.o rg/pr ofess ional s/kdo qi/gf r_cal culat or Not Available [facility] (Lab) [address] [place], [address], 04/07/2022 14:19:00 04/07/19 23 04/07/2022 COMPR EHENS LULY METAB OLIC PANEL alkaline phosphatase 49 U/L 38-126 Not Available [facility] (Lab) [address] [place], [address], 04/07/2022 14:19:00 04/07/19 23 04/07/2022 COMPR EHENS LULY METAB OLIC PANEL alanine aminotransfe rase 126 U/L 0-50 high Not Available [facility] (Lab) [address] [place], [address], 04/07/2022 14:19:00 04/07/19 23 04/07/2022 COMPR EHENS LULY METAB OLIC PANEL aspartate aminotransfe rase 75 U/L 15-46 high Not Available [facility] (Lab) [address] [place], [address], 04/07/2022 14:19:00 04/07/19 23 04/07/2022 COMPR EHENS LULY METAB OLIC PANEL bilirubin, total 0.70 mg/dL 0.20-1 .[address] [facility] (Lab) [address] [place], [address], 04/07/2022 14:19:00 04/07/19 23 04/07/2022 COMPR EHENS LULY METAB OLIC PANEL calcium 9.6 mg/dL 8.4-10 .[address] [facility] (Lab) [address] [facility], [address], 04/07/2022 14:19:00 04/07/19 23 04/07/2022 COMPR EHENS LULY METAB OLIC PANEL total protein 8.1 g/dL 6.3-8. [address] [facility] (Lab) [address] [facility], [address], 04/07/2022 14:19:00 04/07/19 23 04/07/2022 COMPR EHENS LULY METAB OLIC PANEL albumin 5.0 g/dL 3.4-5. [address] [facility] (Lab) [address] [place], [address], 04/07/2022 14:19:00 04/07/19 23 04/07/2022 COMPR EHENS LULY METAB OLIC PANEL globulin 3.1 g/dL 2.6-4. [address] [facility] (Lab) [address] [place], [address], 04/07/2022 14:19:00 04/07/19 23 04/07/2022 COMPR EHENS LULY METAB OLIC PANEL A/G ratio 1.6 ratio 1.0-2. [address] [facility] (Lab) [address] [place], [address], 04/07/2022 14:19:00 04/07/19 23 04/07/2022 LIPID PANEL cholesterol 160 mg/dL 140-19 9 NIH NASEEM NSUS RECOM MENDA TION FOR KAITLIN STERO L: ADULT CHILD LOW RISK: <200 <170 BORDE RLINE : <200- 239 ----- HIGH RISK: >240 >[address] [facility] (Lab) [address] [place], [address], 04/07/2022 14:18:50 04/07/19 23 04/07/2022 LIPID PANEL triglyceride s 152 mg/dL 0-150 high NIH NASEEM NSUS REPOR T RECOM MENDA TION FOR TRIGL YCERI KEVIN: ADULT CHILD LOW RISK: <150 ----- BODER LINE: 150-1 99 ----- HIGH RISK: >200 ----- Not Available [facility] (Lab) [address] [place], [address], 04/07/2022 14:18:50 04/07/19 23 04/07/2022 LIPID PANEL HDL cholesterol 45 mg/dL 40- Not Available [facility] (Lab) [address] [place], [address], 04/07/2022 14:18:50 04/07/19 23 04/07/2022 LIPID PANEL LDL cholesterol, calculated 85 mg/dL 0-130 NIH NASEEM NSUS REPOR T RECOM MENDA TIONS FOR LDL: ADULT CHILD LOW RISK <130 <110 (OPTI MAL LDL) <100 ----- BORDE RLINE : 130-1 59 ----- HIGH RISK: >160 >130 A TRIGL YCERI DE RESUL T >400 INVAL IDATE S THE CALCU LATIO N FOR LDL FRACT IONAT ION - THE LDL RESUL T WILL NOT BE REPOR TOM. Not Available [facility] (Lab) [address] [place], [address], 04/07/2022 14:18:50 04/07/1904/07/2022 hemog lobin A1C, finge rstic k HgbA1C 6.2 Not Available [facility] [address] , [address], [place], [address], 04/07/2022 09:40:49 07/10/1907/09/2022 hemog lobin A1C, finge rstic k HgbA1C 6.6 Not Available [address], [place], [address], 07/09/2022 10:00:20 11/12/19 23 11/11/2022 COMP MET PANEL /LIVE R sodium 140 mmol/ L 137-14 5 Not Available [facility] (Lab) [address] [place], [address], 11/11/2022 13:17:02 11/12/19 23 11/11/2022 COMP MET PANEL /LIVE R potassium 4.2 mmol/ L 3.5-5. 1 Not Available [facility] (Lab) [address] [place], [address], 11/11/2022 13:17:02 11/12/19 23 11/11/2022 COMP MET PANEL /LIVE R chloride 99 mmol/ L 98-107 Not Available [facility] (Lab) [address] [place], [address], 11/11/2022 13:17:02 11/12/19 23 11/11/2022 COMP MET PANEL /LIVE R carbon dioxide 27 mmol/ L 22-30 Not Available [facility] (Lab) [address] [place], [address], 11/11/2022 13:17:02 11/12/19 23 11/11/2022 COMP MET PANEL /LIVE R anion gap 18.2 mmol/ L 14-22 Not Available [facility] (Lab) [address] [place], [address], 11/11/2022 13:17:02 11/12/19 23 11/11/2022 COMP MET PANEL /LIVE R glucose 123 mg/dL 70-99 high Not Available [facility] (Lab) [address] [place], [address], 11/11/2022 13:17:02 11/12/19 23 11/11/2022 COMP MET PANEL /LIVE R BUN 10 mg/dL 8-[address] [facility] (Lab) [address] [place], [address], 11/11/2022 13:17:02 11/12/19 23 11/11/2022 COMP MET PANEL /LIVE R creatinine 0.92 mg/dL 0.66-1 .[address] [facility] (Lab) [address] [place], [address], 11/11/2022 13:17:02 11/12/19 23 11/11/2022 COMP MET PANEL /LIVE R GFR >60 Refer ence Range : Pepin ge GFR Healt hy Adult : >60 mL/mi n/1.7 3 m2 Chron ic Kidne y Disea se: 15-60 mL/mi n/1.7 3 m2 Kidne y Failu re: <15/m L/min /1.73 m2 www.n iddk. nih.g ov The MDRD study equat ion has not been valid ated in child juliet <18 years of age; pregn ant women ; the elder ly >85 years of age; or in some racia l or ethni c subgr oups, such as la nics. Outsi de the valid ated blu eters , estim ated GFR is less accur ate, requi ring clini amparo judgm ent on a case- by-ca se basis . Clini amparo inter preta tion for other races and ages must be made by the clini donato. The MDRD study equat ion has not been valid ated for the evalu ation of serum creat inine relat ed to nutri ira l statu s or medic ation usage . For perso ns <18 years of age, a pedia tric GFR calcu lator is avail able on the F websi te: https ://alysa w.chante espinoza.o rg/pr ofess ional s/kdo qi/gf r_cal culat or Not Available [facility] (Lab) [address] [place], [address], 11/11/2022 13:17:02 11/12/19 23 11/11/2022 COMP MET PANEL /LIVE R alkaline phosphatase 52 U/L 38-126 Not Available [facility] (Lab) [address] [place], [address], 11/11/2022 13:17:02 11/12/19 23 11/11/2022 COMP MET PANEL /LIVE R alanine aminotransfe rase 191 U/L 0-50 high Not Available [facility] (Lab) [address] [place], [address], 11/11/2022 13:17:02 11/12/19 23 11/11/2022 COMP MET PANEL /LIVE R aspartate aminotransfe rase 89 U/L 15-46 high Not Available [facility] (Lab) [address] [place], [address], 11/11/2022 13:17:02 11/12/19 23 11/11/2022 COMP MET PANEL /LIVE R bilirubin, total 0.80 mg/dL 0.20-1 .[address] [facility] (Lab) [address] [place], [address], 11/11/2022 13:17:02 11/12/19 23 11/11/2022 COMP MET PANEL /LIVE R bilirubin, conjugated (direct) 0.00 mg/dL 0.00-0 .[address] [facility] (Lab) [address] [place], [address], 11/11/2022 13:17:02 11/12/19 23 11/11/2022 COMP MET PANEL /LIVE R biliurubin,u ncong. (indirect) 0.60 mg/dL 0.00-1 .[address] [facility] (Lab) [address] [place], [address], 11/11/2022 13:17:02 11/12/19 23 11/11/2022 COMP MET PANEL /LIVE R calcium 10.8 mg/dL 8.4-10 .2 high Not Available [facility] (Lab) [address] [place], [address], 11/11/2022 13:17:02 11/12/19 23 11/11/2022 COMP MET PANEL /LIVE R total protein 8.8 g/dL 6.3-8. 2 high Not Available [facility] (Lab) [address] [place], [address], 11/11/2022 13:17:02 11/12/19 23 11/11/2022 COMP MET PANEL /LIVE R albumin 5.4 g/dL 3.4-5. 0 high Not Available [facility] (Lab) [address] [place], [address], 11/11/2022 13:17:02 11/12/19 23 11/11/2022 COMP MET PANEL /LIVE R globulin 3.4 g/dL 2.6-4. 2 Not Available [facility] (Lab) [address] [place], [address], 11/11/2022 13:17:02 11/12/19 23 11/11/2022 COMP MET PANEL /LIVE R A/G ratio 1.6 ratio 1.0-2. 0 Not Available [facility] (Lab) [address] [place], [address], 11/11/2022 13:17:02 11/12/19 23 11/11/2022 LIPID PANEL cholesterol 160 mg/dL 140-19 9 NIH NASEEM NSUS RECOM MENDA TION FOR KAITLIN STERO L: ADULT CHILD LOW RISK: <200 <170 BORDE RLINE : <200- 239 ----- HIGH RISK: >240 >[address] [facility] (Lab) [address] [place], [address], 11/11/2022 13:17:11 11/12/19 23 11/11/2022 LIPID PANEL triglyceride s 188 mg/dL 0-150 high NIH NASEEM NSUS REPOR T RECOM MENDA TION FOR TRIGL YCERI KEVIN: ADULT CHILD LOW RISK: <150 ----- BODER LINE: 150-1 99 ----- HIGH RISK: >200 ----- Not Available [facility] (Lab) [address] [place], [address], 11/11/2022 13:17:11 11/12/19 23 11/11/2022 LIPID PANEL HDL cholesterol 42 mg/dL 40- Not Available [facility] (Lab) [address] [place], [address], 11/11/2022 13:17:11 11/12/19 23 11/11/2022 LIPID PANEL LDL cholesterol, calculated 80 mg/dL 0-130 NIH NASEEM NSUS REPOR T RECOM MENDA TIONS FOR LDL: ADULT CHILD LOW RISK <130 <110 (OPTI MAL LDL) <100 ----- BORDE RLINE : 130-1 59 ----- HIGH RISK: >160 >130 A TRIGL YCERI DE RESUL T >400 INVAL IDATE S THE CALCU LATIO N FOR LDL FRACT IONAT ION - THE LDL RESUL T WILL NOT BE REPOR TOM. Not Available [facility] (Lab) [address] [place], [address], 11/11/2022 13:17:11 11/12/1911/11/2022 hemog lobin A1C, finge rstic k HgbA1C 6.1 Not Available [address], [place], [address], 11/11/2022 10:24:04 03/01/19 24 03/01/2023 hemog lobin A1C, finge rstic k HgbA1C 6.4 Not Available [address], [place], [address], 03/01/2023 10:20:28 Result Notes None recorded. Problems Name Problem SNOMED Code Status Onset Date Resolution Date Notes Provider Name and Address Organization Details Recorded Time Asthma 995038801 Active 2020 Not Available [facility] 3 06:54:47 Depressive disorder 11565377 Active 2020 Not Available [facility] 3 06:54:47 Anxiety 26122045 Active 2020 Not Available [facility] 3 06:54:47 Type 2 diabetes mellitus without complicati on 008165179 Active 2022 Not Available [facility] 3 06:54:47 Hyperlipid emia 17123263 Active 2022 Not Available [facility] 3 06:54:47 Disorder of nasolacrim al duct 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 Medical Equipment None Reported. Allergies No known drug allergies Medications Name Sig Start Date Stop Date Status Note LastModified by Organization Details LastModified Time amoxicill in 500 mg capsule TAKE 1 CAPSULE BY MOUTH THREE TIMES DAILY UNTIL GONE 09/28 completed Not Available Not Available Not Available triamcino lone acetonide 0.5 % topical cream APPLY CREAM TOPICALL Y TO AFFECTED AREA TWICE DAILY NEEDED 09/28 completed Not Available Not Available Not Available atorvasta tin 10 mg tablet TAKE 1 TABLET BY MOUTH ONCE DAILY active Not Available Not Available No t Available lisinopri l 20 mg-hydroc hlorothia zide 12.5 mg tablet TAKE 1 TABLET BY MOUTH ONCE DAILY active Not Available Not Available No t Available lisinopri l 20 mg tablet TAKE 1 TABLET BY MOUTH ONCE DAILY 03/26 completed Not Available Not Available Not Available sertralin e 100 mg tablet TAKE 2 TABLETS BY MOUTH ONCE DAILY active Not Available Not Available No t Available permethri n 5 % topical cream APPLY TOPICALL Y EVERY 14 DAYS. APPLY SECOND TREATMEN T 14 DAYS AFTER FIRST TREATMEN T IF LIVE LICE REMAIN 09/28 completed Not Available Not Available Not Available phentermi ne 37.5 mg tablet Take 1 tablet by mouth once daily active Not Available Not Available No t Available Depo-Medr ol 80 mg/mL suspensio n for injection Take 1 mL every day by injectio n route for 1 day. 03/11 completed Not Available Not Available Not Available amoxicill in 875 mg tablet TAKE 1 TABLET BY MOUTH TWICE DAILY UNTIL GONE active Not Available Not Available No t Available neomycin- polymyxin -dexameth 3.5 mg/mL-10, 000 unit/mL-0 .1% eye drops INSTILL 1 DROP INTO AFFECTED EYE(S) BY OPHTHALM IC ROUTE EVERY 3-4 HOURS 2022 active Not Available Not Available Not Avai lable albuterol sulfate HFA 90 mcg/actua tion aerosol inhaler INHALE 2 PUFFS BY MOUTH EVERY 4 TO 6 HOURS NEEDED FOR BRONCHOS PASM active Not Available Not Available No t Available metformin ER 500 mg tablet,ex tended release 24 hr TAKE 2 TABLETS BY MOUTH ONCE DAILY active Not Available Not Available No t Available tobramyci n 0.3 %-dexamet hasone 0.1 % eye drops,fareed pension INSTILL 1 DROP INTO AFFECTED EYE(S) BY OPHTHALM IC ROUTE EVERY 6 HOURS active Not Available Not Available No t Available Ozempic 2 mg/dose (8 mg/3 mL) subcutane ous pen injector INJECT 0.25MG JAYLON WEEK BY SUBCUTAN EOUS ROUTE 03/01 completed cannot afford 120 dollars per month Not Available Not Available Not Available Ozempic 0.25 mg or 0.5 mg (2 mg/3 mL) subcutane ous pen injector active Not Available Not Available Not Available Vitals Date Recorded Body mass index (BMI) Body height Oxygen saturation Oxygen saturation in Arterial blood by Pulse oximetry Heart rate Body temperature Body weight Systolic blood pressure Diastolic blood pressure Provider Name and Address Organization Details Last Updated DateTime 2 47.1 kg/m2 177.8 cm 98 % 98 % 90 /min 97 [degF] 303820. 3 g 140 mm[Hg] 90 mm[Hg] Not Available [facility] 3 23:36:48 Date Recorded Body mass index (BMI) Body height Oxygen saturation Oxygen saturation in Arterial blood by Pulse oximetry Heart rate Body temperature Body weight Systolic blood pressure Diastolic blood pressure Provider Name and Address Organization Details Last Updated DateTime 3 48.1 kg/m2 177.8 cm 97 % 97 % 94 /min 97 [degF] 421254. 44 g 180 mm[Hg] 110 mm[Hg] Not Available [facility] 3 23:36:48 Date Recorded Body height Body mass index (BMI) Body weight Body temperature Heart rate Oxygen saturation Oxygen saturation in Arterial blood by Pulse oximetry Systolic blood pressure Diastolic blood pressure Provider Name and Address Organization Details Last Updated DateTime 3 177.8 cm 47.2 kg/m2 232886. 89 g 97.9 [degF] 100 /min 97 % 97 % 102 mm[Hg] 80 mm[Hg] MIRNA Garcia [place] [facility] [employer] [facility] 3 09:53:24 Date Recorded Body height Body mass index (BMI) Body weight Body temperature Heart rate Oxygen saturation Oxygen saturation in Arterial blood by Pulse oximetry Systolic blood pressure Diastolic blood pressure Provider Name and Address Organization Details Last Updated DateTime 3 177.8 cm 46.6 kg/m2 613278. 52 g 96.9 [degF] 103 /min 96 % 96 % 118 mm[Hg] 76 mm[Hg] Thais sifuentes [employer] [facility] 3 10:11:23 Date Recorded Body height Body mass index (BMI) Body weight Body temperature Heart rate Oxygen saturation Oxygen saturation in Arterial blood by Pulse oximetry Systolic blood pressure Diastolic blood pressure Provider Name and Address Organization Details Last Updated DateTime 4 177.8 cm 48.4 kg/m2 711991. 63 g 97.8 [degF] 101 /min 97 % 97 % 122 mm[Hg] 78 mm[Hg] Thais sifuentes [facility] 4 10:07:52 Social History Question Answer Notes LastModified by Organizat ion Details LastModified Time Tobacco Smoking Status Never Smoker Not Available [facility] 04/14/2022 23:36:02 Do You Or Have You Ever Used E-cigarettes Or Vape? Former User Of Electronic Cigarettes [id number] Information not available 04/14/2022 Do You Or Have You Ever Used Any Other Forms Of Tobacco Or Nicotine? Yes [id number] Information not available 04/14/2022 Sex: Unknown Functional Status None recorded. Mental Status None recorded. Family History Relationship Description Onset Age of this Age Resolved Age Notes LastModified by Organization Details LastModified Time Father Diabetes mellitus [id number] Not available 04/14/2022 23:36:10 Father Heart disease [email or web address] [id number] Not available 04/14/2022 23:36:10 Brother Diabetes mellitus [id number] Not available 04/14/2022 23:36:10 Maternal Grandfather Heart disease [email or web address] [id number] Not available 04/14/2022 23:36:10 Medical History Condition Response BLINDNESS N RHEUMATIC FEVER N KIDNEY STONES N BLADDER PROBLEMS N MRSA Y OTHER # 1 N POLIO N LUNG DISEASE/DISORDER N HISTORY OF DRUG ABUSE N COPD N RADIATION / CHEMOTHERAPY N Other # 2 N BLOOD DISEASES N SURGERY N EAR OR HEARING PROBLEMS N MUMPS N SHINGLES N BOWEL PROBLEMS N FEMALE PROBLEMS / INFECTIONS N DEPRESSION (INCLUDING POST ) Y STROKE/TIA N THYROID DISEASE N ULCERS N BENIGN PROSTATIC HYPERPLASIA N MEASLES N CERVICALGIA N TB SKIN TEST N HYPOTENSION N MYOCARDIAL INFARCTION N OBESITY N PARAPELGIA N GERD/NAUSEA N ANEURYSM N URINARY/BLADDER/KIDNEY PROBLEMS N CORONARY ARTERY DISEASE (CAD) N MENIERE'S DISEASE N ADDICTION CONCERNS N ENDOMETRIOSIS N USE OF BLOOD THINNERS N SKIN PROBLEMS N EMPHYSEMA N GASTROINTESTINAL DISORDER N MUSCLE,JOINT OR BONE PROBLEMS N GASTROINTESTINAL BLEEDING N BLOOD CLOTS N ASTHMA Y CATARACTS N ERECTILE DYSFUNCTION N GI PROBLEMS N CHF N Low Testosterone N NEUROPATHY N INFERTILITY N AIDS/HIV N FRACTURES N CHEMOTHERAPY / RADIATION N VISION/EYE PROBLEMS N LIVER DISEASE N MALE HYPOGONADISM N HYPERTENSION N TOURETTE'S N ANXIETY DISORDER Y BLOOD TRANSFUSION N ANEMIA/BLOOD DISORDER N CHRONIC EAR INFECTIONS N BRONCHITIS Y TUBERCULOSIS N GLAUCOMA N FOOT PROBLEM N DIVERTICULITIS N CHICKENPOX N SLEEP APNEA N ALLERGIES/HAYFEVER N INFECTIOUS DISEASE N HEART ARRHYTHMIA N PROSTATE N INSOMNIA N HIGH CHOLESTEROL / HYPERLIPIDEMIA N HYPERTHYROIDISM N EYE PROBLEMS N EATING DISORDER N EDEMA N CHRONIC PAIN SYNDROME N CONSTIPATION N CAROTID BLOCKAGE N BACK / NECK PROBLEMS N HAVE YOU BEEN HOSPITALIZED OR SEEN IN TH E ER IN THE PAST YEAR ? N ATHEROSCLEROSIS N BREAST PROBLEMS N DIALYSIS N ECZEMA N FIBROMYALGIA N OSTEOPOROSIS N ARTHRITIS N NO SIGNIFICANT PAST MEDICAL HISTORY N APPENDICITIS N DIABETES, TYPE N BAD TEETH N HEARTBURN / REFLUX N ADD/ADHD N AUTISM SPECTRUM DISORDER (ASD) N HEPATITIS / LIVER DISEASE N PULMONARY DISEASE N GOUT N SLEEP DISORDER N ALZHEIMER'S DISEASE N PAIN N HERPES N DEMENTIA N HEADACHES/MIGRAINES N SEIZURES/EPILEPSY N VASCULAR DISEASE N PACEMAKER N DIZZINESS N HEART DISEASE/HEART PROBLEMS N KIDNEY DISEASE N DEVELOPMENTAL OR BEHAVIORAL DISORDERS N MULTIPLE SCLEROSIS N SCARLET FEVER N MENTAL DISORDER/ILLNESS N CARDIAC ARRHYTHMIA N CANCER: SPECIFY N PNEUMONIA N ATRIAL FIBRILLATION N Gall Stones N PULMONARY EMBOLISM N AUTOIMMUNE DISEASE N Past Encounters Encounter ID Performer Location Encounter Start Date Encounter Closed Date Diagnosis/Indication Diagnosis SNOMED-CT Code Diagnosis ICD10 Code Diagnosis Note [id number] Korey Bradshaw MD [facility] [place] [address] [place] [address] 11/25/2020 00:00:00 11/25/2020 09:53:03 [id number] Korey Bradshaw MD [facility] [place] [facility] [place] [address] 12/24/2020 00:00:00 12/24/2020 20:41:31 [id number] Korey Bradshaw MD [facility] [place] [address] [place] [address] 01/15/2021 00:00:00 01/15/2021 08:59:01 [id number] Korey Bradshaw MD [facility] [place] [address] [place] [address] 03/02/2021 00:00:00 03/02/2021 19:33:29 [id number] Korey Bradshaw MD [facility] [place] [address] [place] [address] 03/11/2021 00:00:00 03/11/2021 09:56:19 [id number] Korey Bradshaw MD [facility] [place] [address] [facility] [place] [address] 03/26/2021 00:00:00 03/26/2021 10:07:22 [id number] Korey Bradshaw MD [facility] [place] [address] [place] [address] 06/24/2021 00:00:00 06/24/2021 09:43:59 [id number] Korey Bradshaw MD [facility] [place] [address] [place] [address] [place] [address] 09/28/2021 00:00:00 09/29/2021 06:02:22 [id number] Korey Bradshaw MD [facility] [place] [address] [place] [address] [place] [address] 04/07/2022 00:00:00 04/07/2022 10:35:40 [id number] Korey Bradshaw MD [facility] [place] [address] [place] [address] 07/09/2022 09:44:25 07/09/2022 10:04:01 Type 2 diabetes mellitus without complication 376908721 E11.9 A1C was 6.6% Continue same meds Recheck A1C in 4 months Hyperlipidemia 24225712 E78.5 [id number] Korey Bradshaw MD [facility] [place] [address] [place] [address] [place] [address] 11/11/2022 10:00:24 11/11/2022 10:35:28 Type 2 diabetes mellitus without complication 787296976 E11.9 A1C was 6.1 % Will d/c metformin d/t s/e. Change to ozempic 0.25 mg weekly Recheck A1C in 4 months Disorder o f nasolacrimal duct 59178104 H04.9 Warm compresses and NL massage Hyperlipidemia 38364833 E78.5 Acute conj unctivitis of left eye 6556488722 68149 H10.32 [id number] Korey Bradshaw MD [facility] [address] [facility] [place] [address] 03/01/2023 09:58:49 03/01/2023 10:28:58 Type 2 diabetes mellitus without complication 196348237 E11.9 Asthma 629238527 J45.90 9 Depressive disorder 3548 9007 F32.A Anxiety 38776021 F41.9 Hyperlipidemia 97395372 E78.5 Health Concerns Section Related Observation LastModified by Organization Detai ls LastModified Time None Recorded Concern Status LastModified by Organization Details LastModified Time None Recorded Advance Directives Directive None Recorded Payers Encounter Date Sequence Insurance Name Policy Number Policy Webb Covered Member ID Webb Member ID Guarantor Name 07/09/2022 2 [employer] [place] ON [place] AFTER 2020 (MEDICAID REPLACEMENT - HMO) Ck Vaughan [id number] Ck Vaughan 11/11/2022 2 [employer] [place] RE[place]AC[place] - [place]MO) Ck Vaughan [id number] Ck Vaughan 11/11/2022 1 [facility] [id number] Ck Vaughan [id number] Ck Vaughan 03/01/2023 1 [place] [id number] Ck Vaughan [id number] Ck Vaughan 03/01/2023 2 [place] [facility] Ck Vaughan [id number] Ck Vaughan Notes Date Note Type Note Provider Name and Address Organization Details Recorded Time 07/09/2022 text/html Here today for A1C check. Did have an eye exam no Diabetic retinopathy. No complaints today. No tingling or numbness of feet. Has lost some weight is still taking phentermine. He got . Korey Bradshaw MD [address] [place], [place] [address] [address], [place], [address], [facility] [employer] 07/09/2022 16:13:36 11/11/2022 text/html Here today for DM2 check needs A1C. Is working with eye doctors now. He is doing ok. Has c/o metformin upsetting stomach more, going to the bathroom more.Has mucus from corner of left eye it is green in color. Has been on tobramycin/dexame thasone. It does not itch. He has been on this x 3 weeks and still having drainage. Pt also needing BW for lipids and to check CMP. Korey Bradshaw MD [address], [place] [address], [place], [address], [employer] [facility] [employer] 11/11/2022 18:55:46 03/01/2023 text/html no changes BÁRBARA Dimas [address], [facility] [address], [place], [address], [employer] [facility] [employer] 03/01/2023 21:46:43
--- OUTSIDE RECORDS SUMMARY | 2024-06-13 17:06 | XMS_ITS | Clinical Summary ---
Author Organization [address] [address] Care Team Providers Care Printer Slotter Operator Name Role Phone Unknown, Notinfile Primary Care [...] Description 06/13/2024 12:15 PM CDT Office Visit 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 Gender Identity Not on file Sexual Orientation [...] Screening 1995 Regular Well Visit/Exam 18-64 2013 Pneumococcal vaccine <65 (1 of 2 - PCV) 2014 DTaP/Tdap/Td Vaccine (7 - Td or Tdap) 09/05/2019 09/04/2009, 09/20/2000, 05/17/1996, Additional history exists Covid-19 Vaccine ( season) 2023 03/01/2023, 02/10/2021, 04/22/2020, Additional history exists Influenza Vaccine (Season Ended) 2024 03/01/2023, 12/12/2017, 11/25/2011 Hepatitis B Screening Completed 1995 , 1995, 1995 Varicella Vaccines Completed 09/23/2006, 05/17/1996 HPV Vaccines Aged Out No longer eligi ble based on patient's age to complete this topic Insurance [facility] HMO/PPO Address: [facility] [address] [place] [address] Care Teams Printer Slotter Operator Relationship Specialty Start Date End Date Unknown, Notinfile PCP - General 06/13/24
[2024-06-13 17:19] VITALS: BP 159/111; PULSE 98; RESP 17; O2SAT 95
== END 2024-06-13 17:20 | disposition home or self-care (01) ==
LOC: ANHED 17:04
PROVIDERS: Emergency Provider Emergency Medicine
DX: I10 Essential (primary) hypertension (principal); J45.909 Unspecified asthma, uncomplicated; F41.9 Anxiety disorder, unspecified; F32.A Depression, unspecified; Z79.899 Other long term (current) drug therapy
CPT/HCPCS: 99281